=== PATIENT | female | born 1955 | race Caucasian/White ===

== ENCOUNTER 2017-03-22 16:11 | Emergency (ER) | payer BC, MEDICARE ==
[2017-03-22 16:30] VITALS: BP 173/79
--- NOTE | 2017-03-22 17:56 | ER Document Report ---
ED Medical Screen (RME) - General Chief Complaint: Chest Pain Stated Complaint: CHEST PAIN Time Seen by Provider: 03/22/17 17:29 Information source: Patient Notes: Patient is a 61 year old female who presents to the ED with complaints of "weeks " of occipital headaches, fullness in the left side of her neck and left sided chest pain radiating to her back all of which is unusual despite patients history of Fibromyalgia and Rheumatoid Arthritis. TRAVEL OUTSIDE OF THE [place] IN LAST 30 DAYS: No - HPI Associated Symptoms: Other - see above - Related Data Allergies/Adverse Reactions: naproxen [Naproxen] Allergy (Verified 03/22/17 16:27) oxycodone HCl [From OxyContin] Allergy (Verified 03/22/17 16:27) Past Medical History - General Information source: Patient - Social History Chew tobacco use (# tins/day): No Frequency of alcohol use: None Drug Abuse: None - Past Medical History Cardiac Medical History: Reports: Hx Hypercholesterolemia, Hx Hypertension Renal/ Medical History: Denies: Hx Peritoneal Dialysis GI Medical History: Reports: Hx Gastroesophageal Reflux Disease Musculoskeltal Medical History: Reports Hx Arthritis, Reports Hx Fibromyalgia Past Surgical History: Reports: Hx Abdominal Surgery - scar tissue removed from intestine, Hx Appendectomy, Hx Cholecystectomy, Hx Herniorrhaphy, Hx Orthopedic Surgery - ,rt carpen tunn, rt hip replaced - Immunizations Hx Diphtheria, Pertussis, Tetanus Vaccination: Yes Review of Systems - Review of Systems Constitutional: No symptoms reported EENT: No symptoms reported Cardiovascular: See HPI, Chest pain Respiratory: No symptoms reported Gastrointestinal: No symptoms reported Genitourinary: No symptoms reported Female Genitourinary: No symptoms reported Musculoskeletal: See HPI, Other - left side neck fullness Skin: No symptoms reported Hematologic/Lymphatic: No symptoms reported Neurological/Psychological: See HPI, Headaches Physical Exam - Vital signs Vitals: Temp Pulse Resp BP Pulse Ox 97.9 F 91 16 173/79 H 100 03/22/17 16:27 03/22/17 16:27 03/22/17 16:27 03/22/17 16:27 03/22/17 16:27 - General General appearance: Other - somewhat somnolent In distress: None - Respiratory Respiratory status: No respiratory distress Breath sounds: Normal - Cardiovascular Rhythm: Regular Heart sounds: Normal auscultation Murmur: No - Neurological Neuro grossly intact: Yes Course - Vital Signs Vital signs: Temp Pulse Resp BP Pulse Ox 97.9 F 91 16 173/79 H 100 03/22/17 16:27 03/22/17 16:27 03/22/17 16:27 03/22/17 16:27 03/22/17 16:27 Scribe Documentation - Scribe Written by Janele:: cinthia Caballero, 03/22/2017, [id number] acting as scribe for :: Hay
[2017-03-22 18:46] LABS: ABSOLUTE BASOPHILS # (AUTO) 0.1 10^3/uL (0.0-0.2); ABSOLUTE EOSINOPHILS # (AUTO) 0.7 10^3/uL (0.0-0.6); ABSOLUTE LYMPHOCYTES (AUTO) 3.2 10^3/uL (0.5-4.7); ABSOLUTE MONOCYTES (AUTO) 0.7 10^3/uL (0.1-1.4); ABSOLUTE NEUT (AUTO) 6.4 10^3/uL (1.7-8.2); BASOPHILS % (AUTO) 0.5 % (0-2); HEMOGLOBIN 12.1 g/dL (12.0-15.5); HGB HCT DIFFERENCE 0.3; LYMPHOCYTES % (AUTO) 29.1 % (13-45); MEAN CORPUSCULAR HEMOGLOBIN 28.2 pg (27.0-33.4); MEAN CORPUSCULAR HGB CONC 33.5 g/dL (32.0-36.0); MEAN CORPUSCULAR VOLUME 84 fl (80-97); MONOCYTES % (AUTO) 6.4 % (3-13); RED BLOOD COUNT 4.27 10^6/uL (3.72-5.28); WHITE BLOOD COUNT 11.1 10^3/uL (4.0-10.5)
--- NOTE | 2017-03-22 18:49 | RADIOLOGY REPORT (SQ) ---
EXAM DESCRIPTION: CHEST PA/LAT COMPLETED DATE/TIME: 03/22/2017 6:40 pm REASON FOR STUDY: CP COMPARISON: 03/03/2013 EXAM PARAMETERS: NUMBER OF VIEWS: two views TECHNIQUE: Digital Frontal and Lateral radiographic views of the chest acquired. RADIATION DOSE: NA LIMITATIONS: none FINDINGS: LUNGS AND PLEURA: No opacities, masses or pneumothorax. No pleural effusion. MEDIASTINUM AND HILAR STRUCTURES: No masses or contour abnormalities. HEART AND VASCULAR STRUCTURES: Heart normal size. No evidence for failure. BONES: No acute findings. HARDWARE: None in the chest. OTHER: No other significant finding. IMPRESSION: NO SIGNIFICANT RADIOGRAPHIC FINDING IN THE CHEST. TECHNICAL DOCUMENTATION: JOB ID: [id number] [employer]- All Rights Reserved
--- NOTE | 2017-03-22 18:50 | RADIOLOGY REPORT (SQ) ---
EXAM DESCRIPTION: CT HEAD WITHOUT COMPLETED DATE/TIME: 03/22/2017 6:41 pm REASON FOR STUDY: SALAZAR COMPARISON: None. TECHNIQUE: Axial images acquired through the brain without intravenous contrast. Images reviewed wi th bone, brain and subdural windows. Images stored on PACS. All CT scanners at this facility use dose modulation, iterative reconstruction, and/or weight based d osing when appropriate to reduce radiation dose to as low as reasonably achievable (ALARA). [facility]: Dose Right [facility]: CareDose [facility]: Dose Right [facility]: Teradose 4D [facility]: Smart [facility] RADIATION DOSE: Up-to-date CT equipment and radiation dose reduction techniques were employed. CTDIv ol: 64.6 mGy. DLP: 1034 mGy-cm. mGy. LIMITATIONS: None. FINDINGS: VENTRICLES: Normal size and contour. CEREBRUM: No masses. No hemorrhage. No midline shift. Normal khan/white matter differentiation. N o evidence for acute infarction. CEREBELLUM: No masses. No hemorrhage. No alteration of density. No evidence for acute infarction. EXTRAAXIAL SPACES: No fluid collections. No masses. ORBITS AND GLOBE: No intra- or extraconal masses. Normal contour of globe without masses. CALVARIUM: No fracture. PARANASAL SINUSES: No fluid or mucosal thickening. SOFT TISSUES: No mass or hematoma. OTHER: No other significant finding. IMPRESSION: NORMAL BRAIN CT WITHOUT CONTRAST. TECHNICAL DOCUMENTATION: JOB ID: [id number] Quality ID # [id number]: Final reports with documentation of one or more dose reduction techniques (e.g., Au tomated exposure control, adjustment of the mA and/or kV according to patient size, use of iterative reconstruction technique) 2010 [employer]- All Rights Reserved
[2017-03-22 19:07] LABS: ALANINE AMINOTRANSFERASE 32 U/L (9-52); ALBUMIN 3.9 g/dL (3.5-5.0); ALKALINE PHOSPHATASE 154 U/L (38-126); ANION GAP 10 (5-19); ASPARTATE AMINO TRANSFERASE 20 U/L (14-36); BILIRUBIN,DIRECT 0.3 mg/dL (0.0-0.4); BILIRUBIN,TOTAL 0.3 mg/dL (0.2-1.3); BLOOD UREA NITROGEN 7 mg/dL (7-20); CALCIUM 9.4 mg/dL (8.4-10.2); CARBON DIOXIDE 28 mmol/L (22-30); CHLORIDE 105 mmol/L (98-107); CREATINE KINASE 35 U/L (30-135); CREATININE RESULT 0.68 mg/dL (0.52-1.25); GLUCOSE 99 mg/dL (75-110); POTASSIUM 3.9 mmol/L (3.6-5.0); SODIUM 142.8 mmol/L (137-145); TOTAL PROTEIN 7.1 g/dL (6.3-8.2)
--- NOTE | 2017-03-22 19:28 | ER Document Report ---
ED General <OVIDIO MARINO - Last Filed: 03/22/17 20:15> - General Mode of Arrival: Ambulatory Information source: Patient TRAVEL OUTSIDE OF THE [place] IN LAST 30 DAYS: No <CALLY WHITESIDE - Last Filed: 03/23/17 04:21> - General Chief Complaint: Chest Pain Stated Complaint: CHEST PAIN Time Seen by Provider: 03/22/17 17:29 Notes: Patient is a 61-year-old female presenting to the emergency department for chest pain that radiates into her back. Patient states it has been constant. Patient also complains of some occasional suture nail. Patient has not had any history of headache. Patient states he is waiting to months. Patient has a history of fibromyalgia, RA, GERD and relates that the symptoms could be caused by her trigger points. Patient concerned that she may be having a heart attack or a more serious going on in her head causing headaches. Patient also recently had an endoscopy. Patient has received acupuncture and injections in the past for her fibromyalgia RA. Patient states that she has tramadol she has hydrocodone at home but does not use it all the time. Patient had outpatient care physician for follow-up for her fibromyalgia symptoms. (CALLY WHITESIDE) - Related Data Allergies/Adverse Reactions: naproxen [Naproxen] Allergy (Verified 03/22/17 16:27) oxycodone HCl [From OxyContin] Allergy (Verified 03/22/17 16:27) Past Medical History - General Information source: Patient - Social History Smoking Status: Current Some Day Smoker Chew tobacco use (# tins/day): No Frequency of alcohol use: None Drug Abuse: None Family History: None, Malignancy - FATHER NON-HODGKIN'S, Other - MOTHER AT 82 COPD AND LUNG CANCER Patient has suicidal ideation: No Patient has homicidal ideation: No - Past Medical History Cardiac Medical History: Reports: Hx Hypercholesterolemia, Hx Hypertension GI Medical History: Reports: Hx Gastroesophageal Reflux Disease Musculoskeltal Medical History: Reports Hx Arthritis, Reports Hx Fibromyalgia Past Surgical History: Reports: Hx Abdominal Surgery - scar tissue removed from intestine, Hx Appendectomy, Hx Cholecystectomy, Hx Herniorrhaphy, Hx Orthopedic Surgery - ,rt carpen tunn, rt hip replaced - Immunizations Hx Diphtheria, Pertussis, Tetanus Vaccination: Yes <CALLY WHITESIDE - Last Filed: 03/23/17 04:21> Review of Systems - Review of Systems Constitutional: No symptoms reported EENT: No symptoms reported Cardiovascular: See HPI, Chest pain Respiratory: No symptoms reported Gastrointestinal: No symptoms reported Genitourinary: No symptoms reported Female Genitourinary: No symptoms reported Musculoskeletal: No symptoms reported Skin: No symptoms reported Hematologic/Lymphatic: No symptoms reported Neurological/Psychological: See HPI, Headaches -: Yes All other systems reviewed and negative <CALLY WHITESIDE - Last Filed: 03/23/17 04:21> Physical Exam <OVIDIO MARINO - Last Filed: 03/22/17 20:15> <CALLY WHITESIDE - Last Filed: 03/23/17 04:21> - Vital signs Vitals: Temp Pulse Resp BP Pulse Ox 97.9 F 91 16 173/79 H 100 03/22/17 16:27 03/22/17 16:27 03/22/17 16:27 03/22/17 16:27 03/22/17 16:27 - Notes Notes: GENERAL: Alert, interacts well. No acute distress. HEAD: Normocephalic, atraumatic. EYES: Appear normal. Pupils equal, round, and reactive to light. ENT: Moist mucus membranes, tongue midline. NECK/BACK: Full range of motion. Supple. Trachea midline. Paracervical and parathoracic tenderness to palpation. LUNGS: Clear to auscultation bilaterally, no wheezes, rales, or rhonchi. No respiratory distress. Mild anterior chest wall tenderness to palpation. HEART: Regular rate and rhythm. No murmurs, gallops, or rubs. ABDOMEN: Soft, non-tender. Non-distended. Normal bowel sounds. EXTREMITIES: Moves all 4 extremities spontaneously. Normal strength. No edema. NEUROLOGICAL: Alert and oriented x3. Normal speech. No focal neurological deficits. GSC 15. PSYCH: Normal affect, normal mood. SKIN: Warm, dry, normal turgor. No rashes or lesions noted. (CALLY WHITESIDE) Course - Laboratory Result Diagrams: 03/22/17 18:25 03/22/17 18:25 <OVIDIO MARINO - Last Filed: 03/22/17 20:15> - Laboratory Result Diagrams: 03/22/17 18:25 03/22/17 18:25 <CALLY WHITESIDE - Last Filed: 03/23/17 04:21> - Re-evaluation Re-evalutation: 03/22/17 20:08 Patient presents to the emergency department with a chief complaint of chest pain occipital neck pain parathoracic paracervical pain is been going for several weeks. She has fibromyalgia sees a basketball coach in [place] and a local physician nurse assistant. These headaches have been going on for months now not in any different in character quality frequency and duration not associated with blurred vision double vision strokelike symptoms or syncope. That she had chest pain she is describing is been reproducible to touch over certain areas of her left anterior chest wall movement of the left arm and she got multiple tender points throughout her neck paracervical and parathoracic spine. EKG is stable and nonacute cardiac enzymes are negative with almost 2 days of constant pain is reproducible to touch and movement she is not short of breath hypoxic tachypneic or tachycardic. He has multiple areas of tender points throughout her body. She says that occasionally she gets tingling in her left arm radial ulnar axillary median nerves are intact good pulses and perfusion. I do not feel this is an acute VA PE or dissection. I do want her to closely follow-up in regards to the tender points acupoint puncture muscle strain and possibility of something going on with her neck causing radicular pain. Specifically discussed this with her and her and reasons for ED return sooner 03/22/17 20:15 (OVIDIO MARINO) - Vital Signs Vital signs: Temp Pulse Resp BP Pulse Ox 97.9 F 91 16 173/79 H 100 03/22/17 16:27 03/22/17 16:27 03/22/17 16:27 03/22/17 16:27 03/22/17 16:27 - Laboratory Laboratory results interpreted by me: 03/22/17 03/22/17 18:25 18:25 WBC 11.1 H Absolute Eosinophils 0.7 H Alkaline Phosphatase 154 H Discharge <OVIDIO MARINO - Last Filed: 03/22/17 20:15> <CALLY WHITESIDE - Last Filed: 03/23/17 04:21> - Discharge Clinical Impression: Nonspecific chest pain, cervical tenderness Condition: Stable Disposition: HOME, SELF-CARE Instructions: Chest Wall Pain ([facility]) Additional Instructions: Chest Wall Pain Your chest pain has been diagnosed as coming from the chest wall. This is often caused by straining the muscles or joints in the chest during physical activity, direct trauma, coughing, or vigorous vomiting. Persons with arthritis are especially prone to this type of pain, due to inflammation of the cartilage joints near the breast bone. Occasionally, no cause can be found. Rest from strenuous physical activity. This kind of chest pain is usually made worse by movement of the chest. Depending on the symptoms, we may prescribe medicine for pain, muscle relaxation, and antiinflammatory effects. If the pain is new, and seems to be due to muscle strain, cold packs can help. Otherwise, apply gentle warmth to the painful area for 15 minutes every hour or two. You should contact the doctor immediately if things change. Further evaluation is needed if you develop a fever or cough, if the nature of the pain changes, or if you become short of breath. Follow-up with your primary care physician in 1-2 days return for increasing worsening or new symptoms Scribe Attestation: 03/22/17 20:15 I personally performed the services described in the documentation reviewed the documentation recorded by my scribe in my presence and it accurately and completely records my words and actions (OVIDIO MARINO) Scribe Documentation - Scribe Written by Elissa:: Elissa Joseph, 03/23/17 16:21 acting as scribe for :: Rodney <CALLY WHITESIDE - Last Filed: 03/23/17 04:21>
--- NOTE | 2017-03-22 22:52 | EKG REPORT ---
SEVERITY:- ABNORMAL ECG - SINUS RHYTHM FIRST DEGREE AV BLOCK PROBABLE LEFT ATRIAL ABNORMALITY LEFT AXIS DEVIATION : Confirmed by: Brianna Caruso 22-Mar-2017 22:51:51
== END 2017-03-22 20:20 | disposition home or self-care (01) ==
LOC: ER 16:11
DX: R07.9 Chest pain, unspecified (principal); M54.2 Cervicalgia; F17.200 Nicotine dependence, unspecified, uncomplicated; E78.00 Pure hypercholesterolemia, unspecified; I10 Essential (primary) hypertension; K21.9 Gastro-esophageal reflux disease without esophagitis; Z88.6 Allergy status to analgesic agent; Z90.49 Acquired absence of other specified parts of digestive tract; Z96.641 Presence of right artificial hip joint
CPT/HCPCS: 36415; 70450; 71020; 80053; 82550; 82553; 84484; 85025; 93005; 93010; 99285

== ENCOUNTER 2017-10-17 22:32 | Emergency (ER) | payer MEDICARE ==
[2017-10-17] MEDS ORDERED: HYDROCODONE/ACETAMINOPHEN 5-325 MG TABLET PO ONE (23:07)
--- NOTE | 2017-10-17 23:48 | RADIOLOGY REPORT (SQ) ---
EXAM DESCRIPTION: HAND RIGHT 3 VIEWS COMPLETED DATE/TIME: 10/17/2017 11:32 pm REASON FOR STUDY: hand/wrist pain COMPARISON: None. EXAM PARAMETERS: NUMBER OF VIEWS: Three views. TECHNIQUE: AP, lateral and oblique radiographic images acquired of the right hand. LIMITATIONS: None. FINDINGS: MINERALIZATION: Normal. BONES: No acute fracture or dislocation. No worrisome bone lesions. JOINTS: No effusions. SOFT TISSUES: No soft tissue swelling. No foreign body. OTHER: No other significant finding. IMPRESSION: NO RADIOGRAPHIC EVIDENCE OF ACUTE INJURY. TECHNICAL DOCUMENTATION: JOB ID: [id number] [place]-72 2010 [employer]- All Rights Reserved
--- NOTE | 2017-10-17 23:49 | RADIOLOGY REPORT (SQ) ---
EXAM DESCRIPTION: WRIST RIGHT 3 VIEWS COMPLETED DATE/TIME: 10/17/2017 11:32 pm REASON FOR STUDY: hand/wrist pain COMPARISON: None. NUMBER OF VIEWS: Three views. TECHNIQUE: AP, lateral, and oblique radiographic images acquired of the right wrist. LIMITATIONS: None. FINDINGS: MINERALIZATION: Normal. BONES: No acute fracture or dislocation. No worrisome bone lesions. Normal alignment. SOFT TISSUES: No soft tissue swelling. No foreign body. OTHER: No other significant finding. IMPRESSION: NO RADIOGRAPHIC EVIDENCE OF ACUTE INJURY. TECHNICAL DOCUMENTATION: JOB ID: [id number] [place]-72 2010 [employer]- All Rights Reserved
[2017-10-18] MEDS ORDERED: KETOROLAC TROMETHAMINE 60 MG/2 ML SDV IM ONE (00:20)
--- NOTE | 2017-10-18 00:20 | ER Document Report ---
ED Hand/Wrist Injury - General Chief Complaint: Wrist Pain Stated Complaint: WRIST PAIN Time Seen by Provider: 10/17/17 23:07 Mode of Arrival: Ambulatory Information source: Patient Notes: Patient is a 62-year-old female who presents to the ER today for right wrist pain 1 day. Patient states that she was planting seeds prior to the wrist starting to hurt. She states that she has had carpal tunnel surgery on that wrist before years ago. Patient also states she has fibromyalgia. She denies any injury. TRAVEL OUTSIDE OF THE [place] IN LAST 30 DAYS: No - Related Data Allergies/Adverse Reactions: naproxen [Naproxen] Allergy (Verified 03/22/17 16:27) oxycodone HCl [From OxyContin] Allergy (Verified 03/22/17 16:27) Past Medical History - General Information source: Patient - Social History Smoking Status: Unknown if Ever Smoked Family History: None, Malignancy - FATHER NON-HODGKIN'S, Other - MOTHER AT 82 COPD AND LUNG CANCER Patient has suicidal ideation: No Patient has homicidal ideation: No - Past Medical History Cardiac Medical History: Reports: Hx Hypercholesterolemia, Hx Hypertension Renal/ Medical History: Denies: Hx Peritoneal Dialysis GI Medical History: Reports: Hx Gastroesophageal Reflux Disease Musculoskeltal Medical History: Reports Hx Arthritis, Reports Hx Fibromyalgia Past Surgical History: Reports: Hx Abdominal Surgery - scar tissue removed from intestine, Hx Appendectomy, Hx Cholecystectomy, Hx Herniorrhaphy, Hx Orthopedic Surgery - ,rt carpen tunn, rt hip replaced - Immunizations Hx Diphtheria, Pertussis, Tetanus Vaccination: Yes Review of Systems - Review of Systems Constitutional: No symptoms reported EENT: No symptoms reported Cardiovascular: No symptoms reported Respiratory: No symptoms reported Gastrointestinal: No symptoms reported Genitourinary: No symptoms reported Female Genitourinary: No symptoms reported Musculoskeletal: See HPI Skin: No symptoms reported Hematologic/Lymphatic: No symptoms reported Neurological/Psychological: No symptoms reported Physical Exam - Notes Notes: PHYSICAL EXAMINATION: GENERAL: Crying, holding right wrist, but in no acute distress. HEAD: Atraumatic, normocephalic. EYES: Pupils equal round and reactive to light, extraocular movements intact, sclera anicteric, conjunctiva are normal. NECK: Normal range of motion, supple without lymphadenopathy LUNGS: CTAB and equal. No wheezes rales or rhonchi. HEART: Regular rate and rhythm without murmurs EXTREMITIES: Normal range of motion, no tenderness to palpation to the entire wrist or hand,no pitting edema. No cyanosis. NEUROLOGICAL: Cranial nerves grossly intact. Normal sensory/motor exams. PSYCH: Normal mood, normal affect. SKIN: Warm, Dry, normal turgor, no rashes or lesions noted Course - Re-evaluation Re-evalutation: 10/18/17 00:33 X-ray of the right hand and wrist are negative for any acute pathology. Patient has no injury. Patient likely overused the wrist planting seeds and is having pain from that. Patient is quite dramatic, very tearful and insisting over and over while rocking in her chair that something is wrong. She is not happy when I tell her that the x-rays are negative. Patient does insist on more pain medication, however she is on pain management and takes naltrexone as part of her pain management contract. At this time I will give her a Toradol shot and she will go home with a cockup brace. She is to follow-up with her orthopedic doctor. Discharge - Discharge Clinical Impression: Right wrist pain Condition: Stable Disposition: HOME, SELF-CARE Additional Instructions: Return immediately for any new or worsening symptoms. Follow up with primary care provider, call tomorrow to make followup appointment. Referrals: DOUG BABIN FNP [Primary Care Provider] - Follow up as needed
== END 2017-10-18 00:50 | disposition home or self-care (01) ==
LOC: ER 22:32
DX: M25.531 Pain in right wrist (principal); M79.7 Fibromyalgia; Z79.899 Other long term (current) drug therapy; I10 Essential (primary) hypertension; Z87.39 Personal history of other diseases of the musculoskeletal system and connective tissue; Z98.890 Other specified postprocedural states; Z88.0 Allergy status to penicillin; Z88.5 Allergy status to narcotic agent
CPT/HCPCS: 99283; 96372; 73130; 73110; L3908; J1885; A9270